=== PATIENT | male | born 1940 | race Caucasian/White ===

== ENCOUNTER 2017-01-22 05:28 | Inpatient (IN) | payer MEDICARE, MEDICAID ==
[~2017-01-22] VITALS: Ht 175.3 cm; Wt 80.3 kg
[2017-01-22 08:35] LABS: INR 1.1; PARTIAL THROMBOPLASTIN TIME 30.3 sec (23.4-31.0); PROTHROMBIN TIME 11.7 sec (9.4-11.6)
[2017-01-22 08:39] LABS: HEMOGLOBIN. 10.3 g/dL (14.0-18.0); MEAN CORPUSCULAR HEMOGLOBIN 35.7 pg (28.0-32.0); MEAN CORPUSCULAR VOLUME 104.2 fL (80.0-94.0); RED BLOOD CELL COUNT 2.88 mill/uL (4.7-6.1); RED CELL DISTRIBUTION WIDTH 15.5 % (11.6-14.6)
[2017-01-22 08:41] LABS: CARBON DIOXIDE 29 mEq/L (21-32); CHLORIDE 104 mEq/L (98-107); TROPONIN I 0.03 ng/mL (0.00-0.04)
[2017-01-22 09:25] LABS: PLATELET ESTIMATE DECREASED
[2017-01-22 09:26] LABS: MEAN PLATELET VOLUME 11.7 fl (7.4-10.4)
[2017-01-22 09:27] LABS: PLATELET 49 x1000/uL (130-400)
[2017-01-22] MEDS ORDERED: CEFTRIAXONE 1 G PREMIX 50 ML IV ONE (09:30)
[2017-01-22] MEDS ORDERED: SODIUM CHLORIDE 0.9% 1000ML BAG (SEPSIS BOLUS) IV ONE (11:30)
[2017-01-22 12:06] LABS: CLARITY URINE CLOUDY (CLEAR); COLOR URINE YELLOW (YELLOW); GLUCOSE URINE NEGATIVE (NEGATIVE); KETONES URINE NEGATIVE (NEGATIVE); LEUKOCYTE ESTERASE URINE TRACE (NEGATIVE); NITRITE URINE NEGATIVE (NEGATIVE); OCCULT BLOOD URINE 3+ (NEGATIVE); PROTEIN URINE 2+ (NEGATIVE)
[2017-01-22 15:50] VITALS: BP 123/84
[2017-01-22 16:00] VITALS: BP 120/49
[2017-01-22] MEDS ORDERED: DOCUSATE SODIUM 100MG CAPSULE PO PRN (18:00)
[2017-01-22] MEDS ORDERED: HYDROCODONE/ACETAMINOPHEN 5/325MG TABLET PO PRN (18:00)
[2017-01-22] MEDS ORDERED: ACETAMINOPHEN 325MG TABLET PO PRN (18:00)
[2017-01-22] MEDS ORDERED: LORAZEPAM 2MG/ML CPJ IV PRN (18:00)
[2017-01-22] MEDS ORDERED: IPRATROPIUM/ALBUTEROL 0.5-3(2.5)MG/3ML NEB INH PRN (18:00)
[2017-01-22] MEDS ORDERED: CLONIDINE 0.1MG TABLET PO PRN (18:00)
[2017-01-22] MEDS ORDERED: ONDANSETRON HCL 4MG/2ML VIAL IV PRN (18:00)
[2017-01-22] MEDS ORDERED: DIPHENHYDRAMINE 50MG/ML VIAL IV PRN (18:00)
[2017-01-22] MEDS ORDERED: GUAIFENESIN 200MG/10ML SUGAR FREE UDC PO PRN (18:00)
[2017-01-22] MEDS: LORAZEPAM 0.5MG TABLET PO SCH (18:45)
[2017-01-22 20:00] VITALS: BP 119/53
[2017-01-22] MEDS: LEVOFLOXACIN 500MG PREMIX 100 ML IV SCH (20:03)
[2017-01-22] MEDS: QUETIAPINE FUMARATE 25MG TABLET PO SCH (20:19)
[2017-01-22] MEDS: SODIUM CHLORIDE 0.9% 1,000 ML IV SCH (20:20)
[2017-01-23] VITALS: BP 110/50
[2017-01-23] MEDS: LORAZEPAM 0.5MG TABLET PO SCH ×3 (03:31→17:58)
[2017-01-23 04:00] VITALS: BP 92/46
[2017-01-23 05:50] LABS: HEMATOCRIT. 23.3 % (42.0-52.0); HEMOGLOBIN. 7.9 g/dL (14.0-18.0); MEAN CORPUSCULAR HEMOGLOBIN 35.5 pg (28.0-32.0); MEAN CORPUSCULAR VOLUME 104.7 fL (80.0-94.0); MEAN PLATELET VOLUME 11.6 fl (7.4-10.4); RED BLOOD CELL COUNT 2.22 mill/uL (4.7-6.1); RED CELL DISTRIBUTION WIDTH 15.5 % (11.6-14.6)
[2017-01-23 06:22] LABS: CHLORIDE 108 mEq/L (98-107)
[2017-01-23 06:28] LABS: PLATELET 35 x1000/uL (130-400)
[2017-01-23] MEDS: LEVOTHYROXINE SODIUM 50MCG TABLET PO SCH (06:34)
[2017-01-23 06:38] LABS: CARBON DIOXIDE 23 mEq/L (21-32); T4 FREE 1.04 ng/dL (0.76-1.46)
[2017-01-23 08:00] VITALS: BP 94/41
[2017-01-23 08:15] LABS: PLATELET ESTIMATE MARKEDLY DECREASED
[2017-01-23] MEDS: FOLIC ACID 1MG TABLET PO SCH (08:39)
[2017-01-23] MEDS: MULTIVITAMINS,THER W-MINERALS TABLET PO SCH (08:40)
[2017-01-23] MEDS: QUETIAPINE FUMARATE 25MG TABLET PO SCH ×2 (08:40→20:13)
[2017-01-23] MEDS: DONEPEZIL HCL 5MG TABLET PO SCH (08:40)
[2017-01-23] MEDS: ASPIRIN 81MG EC TABLET PO SCH (08:40)
[2017-01-23] MEDS: FERROUS SULFATE 325MG TABLET PO SCH ×3 (08:41→17:58)
[2017-01-23] MEDS: DOCUSATE SODIUM 250MG CAPSULE PO SCH (08:50)
[2017-01-23] MEDS ORDERED: KCL 20MEQ/100ML PREMIX 100 ML IV SCH (11:30)
[2017-01-23] MEDS: SODIUM CHLORIDE 0.9% 1,000 ML IV SCH (11:50)
[2017-01-23 12:00] VITALS: BP 95/41
[2017-01-23 16:00] VITALS: BP 115/48
[2017-01-23 20:00] VITALS: BP 105/43
[2017-01-23] MEDS: LEVOFLOXACIN 500MG PREMIX 100 ML IV SCH (20:13)
[2017-01-23] MEDS: FLUDROCORTISONE ACETATE 0.1MG TABLET PO SCH (20:13)
[2017-01-24] VITALS: BP 103/48
[2017-01-24] MEDS: LORAZEPAM 0.5MG TABLET PO SCH ×3 (01:49→18:00)
[2017-01-24 04:00] VITALS: BP 101/54
[2017-01-24] MEDS: SODIUM CHLORIDE 0.9% 1,000 ML IV SCH (06:25)
[2017-01-24] MEDS: LEVOTHYROXINE SODIUM 50MCG TABLET PO SCH (06:25)
[2017-01-24 08:00] VITALS: BP 110/57
[2017-01-24] MEDS: MULTIVITAMINS,THER W-MINERALS TABLET PO SCH (08:27)
[2017-01-24] MEDS: FOLIC ACID 1MG TABLET PO SCH (08:27)
[2017-01-24] MEDS: QUETIAPINE FUMARATE 25MG TABLET PO SCH ×2 (08:27→21:58)
[2017-01-24] MEDS: ASPIRIN 81MG EC TABLET PO SCH (08:27)
[2017-01-24] MEDS: FERROUS SULFATE 325MG TABLET PO SCH ×3 (08:27→18:00)
[2017-01-24] MEDS: FLUDROCORTISONE ACETATE 0.1MG TABLET PO SCH (08:27)
[2017-01-24] MEDS: DONEPEZIL HCL 5MG TABLET PO SCH (08:29)
[2017-01-24] MEDS: DOCUSATE SODIUM 250MG CAPSULE PO SCH (08:34)
[2017-01-24 09:32] LABS: HEMATOCRIT. 25.9 % (42.0-52.0); HEMOGLOBIN. 8.6 g/dL (14.0-18.0); MEAN CORPUSCULAR HEMOGLOBIN 34.4 pg (28.0-32.0); MEAN CORPUSCULAR VOLUME 103.9 fL (80.0-94.0); MEAN PLATELET VOLUME 11.6 fl (7.4-10.4); RED BLOOD CELL COUNT 2.49 mill/uL (4.7-6.1); RED CELL DISTRIBUTION WIDTH 15.1 % (11.6-14.6)
[2017-01-24 09:38] LABS: PLATELET 44 x1000/uL (130-400)
[2017-01-24 09:56] LABS: CARBON DIOXIDE 25 mEq/L (21-32); CHLORIDE 108 mEq/L (98-107)
[2017-01-24 12:00] VITALS: BP 123/95
[2017-01-24 14:22] LABS: PLATELET ESTIMATE MARKEDLY DECREASED
[2017-01-24 16:00] VITALS: BP 120/60
[2017-01-24] MEDS ORDERED: POTASSIUM CHLORIDE 20MEQ TABLET SR PO NR (17:15)
[2017-01-24 20:00] VITALS: BP 124/60
[2017-01-24] MEDS: LEVOFLOXACIN 500MG PREMIX 100 ML IV SCH (22:00)
[2017-01-24] MEDS ORDERED: POTASSIUM CHLORIDE 20MEQ TABLET SR PO SCH (22:00)
[2017-01-25] VITALS: BP 130/56
[2017-01-25] MEDS: LORAZEPAM 0.5MG TABLET PO SCH ×3 (02:45→18:48)
[2017-01-25 04:00] VITALS: BP 146/62
[2017-01-25 07:52] LABS: CARBON DIOXIDE 25 mEq/L (21-32); CHLORIDE 106 mEq/L (98-107)
[2017-01-25 08:00] VITALS: BP 128/63
[2017-01-25] MEDS: ASPIRIN 81MG EC TABLET PO SCH (09:00)
[2017-01-25] MEDS: DOCUSATE SODIUM 250MG CAPSULE PO SCH (11:00)
[2017-01-25] MEDS: FERROUS SULFATE 325MG TABLET PO SCH ×3 (11:00→17:18)
[2017-01-25] MEDS: QUETIAPINE FUMARATE 25MG TABLET PO SCH ×2 (11:00→20:58)
[2017-01-25] MEDS: MULTIVITAMINS,THER W-MINERALS TABLET PO SCH (11:00)
[2017-01-25] MEDS: DONEPEZIL HCL 5MG TABLET PO SCH (11:01)
[2017-01-25] MEDS: FLUDROCORTISONE ACETATE 0.1MG TABLET PO SCH (11:01)
[2017-01-25] MEDS: POTASSIUM CHLORIDE 20MEQ TABLET SR PO SCH ×2 (11:01→17:17)
[2017-01-25] MEDS: LEVOTHYROXINE SODIUM 50MCG TABLET PO SCH (11:01)
[2017-01-25] MEDS: FOLIC ACID 1MG TABLET PO SCH (11:09)
[2017-01-25 12:00] VITALS: BP 129/54
[2017-01-25] MEDS: SODIUM CHLORIDE 0.9% 1,000 ML IV SCH (15:41)
[2017-01-25 16:00] VITALS: BP 113/56
[2017-01-25 20:23] VITALS: BP 128/59
[2017-01-25] MEDS: LEVOFLOXACIN 500MG PREMIX 100 ML IV SCH (20:58)
[2017-01-26] VITALS: BP 110/64
[2017-01-26] MEDS: LORAZEPAM 0.5MG TABLET PO SCH ×3 (02:10→18:54)
[2017-01-26 04:00] VITALS: BP 119/51
[2017-01-26] MEDS: LEVOTHYROXINE SODIUM 50MCG TABLET PO SCH (06:56)
[2017-01-26 07:31] LABS: HEMATOCRIT. 24.9 % (42.0-52.0); HEMOGLOBIN. 8.6 g/dL (14.0-18.0); MEAN CORPUSCULAR HEMOGLOBIN 35.4 pg (28.0-32.0); PLATELET 66 x1000/uL (130-400); RED BLOOD CELL COUNT 2.44 mill/uL (4.7-6.1); RED CELL DISTRIBUTION WIDTH 15.1 % (11.6-14.6)
[2017-01-26 08:00] VITALS: BP 118/68
[2017-01-26 08:45] LABS: CARBON DIOXIDE 25 mEq/L (21-32); CHLORIDE 105 mEq/L (98-107)
[2017-01-26] MEDS: ASPIRIN 81MG EC TABLET PO SCH (09:00)
[2017-01-26] MEDS: DONEPEZIL HCL 5MG TABLET PO SCH (10:22)
[2017-01-26] MEDS: FOLIC ACID 1MG TABLET PO SCH (10:22)
[2017-01-26] MEDS: QUETIAPINE FUMARATE 25MG TABLET PO SCH ×2 (10:22→20:32)
[2017-01-26] MEDS: MULTIVITAMINS,THER W-MINERALS TABLET PO SCH (10:23)
[2017-01-26] MEDS: FERROUS SULFATE 325MG TABLET PO SCH ×3 (10:23→17:51)
[2017-01-26] MEDS: SODIUM CHLORIDE 0.9% 1,000 ML IV SCH (10:23)
[2017-01-26] MEDS: FLUDROCORTISONE ACETATE 0.1MG TABLET PO SCH (10:23)
[2017-01-26] MEDS: DOCUSATE SODIUM 250MG CAPSULE PO SCH (10:30)
[2017-01-26 12:00] VITALS: BP 110/55
[2017-01-26] MEDS ORDERED: POTASSIUM CHLORIDE 20MEQ TABLET SR PO NR (15:30)
[2017-01-26 16:00] VITALS: BP 108/57
[2017-01-26 17:07] LABS: PLATELET ESTIMATE DECREASED
[2017-01-26 20:00] VITALS: BP 120/48
[2017-01-26] MEDS: LEVOFLOXACIN 500MG PREMIX 100 ML IV SCH (20:32)
[2017-01-27] VITALS: BP 116/56
[2017-01-27] MEDS: LORAZEPAM 0.5MG TABLET PO SCH ×3 (02:51→18:06)
[2017-01-27] MEDS: LEVOTHYROXINE SODIUM 50MCG TABLET PO SCH (06:49)
[2017-01-27 08:00] VITALS: BP 125/58
[2017-01-27] MEDS: SODIUM CHLORIDE 0.9% 1,000 ML IV SCH ×2 (08:35→14:29)
[2017-01-27] MEDS: FOLIC ACID 1MG TABLET PO SCH (08:37)
[2017-01-27] MEDS: DONEPEZIL HCL 5MG TABLET PO SCH (08:37)
[2017-01-27] MEDS: MULTIVITAMINS,THER W-MINERALS TABLET PO SCH (08:37)
[2017-01-27] MEDS: ASPIRIN 81MG EC TABLET PO SCH (08:37)
[2017-01-27] MEDS: QUETIAPINE FUMARATE 25MG TABLET PO SCH (08:37)
[2017-01-27] MEDS: FLUDROCORTISONE ACETATE 0.1MG TABLET PO SCH (08:37)
[2017-01-27] MEDS: FERROUS SULFATE 325MG TABLET PO SCH ×3 (08:37→18:06)
[2017-01-27] MEDS: DOCUSATE SODIUM 250MG CAPSULE PO SCH (08:41)
[2017-01-27 12:00] VITALS: BP 103/53
[2017-01-27 12:45] LABS: HEMATOCRIT. 26.1 % (42.0-52.0); HEMOGLOBIN. 8.7 g/dL (14.0-18.0); MEAN CORPUSCULAR HEMOGLOBIN 34.2 pg (28.0-32.0); MEAN CORPUSCULAR VOLUME 102.3 fL (80.0-94.0); MEAN PLATELET VOLUME 10.6 fl (7.4-10.4); PLATELET 87 x1000/uL (130-400); RED BLOOD CELL COUNT 2.55 mill/uL (4.7-6.1); RED CELL DISTRIBUTION WIDTH 15.2 % (11.6-14.6)
[2017-01-27 16:00] VITALS: BP 111/52
[2017-01-27 16:52] VITALS: BP 111/52
[2017-01-27] MEDS ORDERED: LEVOFLOXACIN 750MG PREMIX 150 ML IV SCH (18:00)
[2017-01-27 20:49] LABS: PLATELET ESTIMATE MARKEDLY DECREASED
[2017-01-28] MEDS ORDERED: LEVOFLOXACIN 500MG TABLET PO SCH (11:00)
== END 2017-01-27 20:00 | DRG 871 ==
LOC: ER 05:28 → 6EST 12:09 → EDBEDREQ 12:10 → EDBEDREQTM 12:10 → EDBEDREQSVC 12:10 → ENRESERV 14:06
PROVIDERS: ADMIT Hospitalist; ATTEND Hospitalist
DX: A41.9 Sepsis, unspecified organism (principal); J96.00 Acute respiratory failure, unspecified whether with hypoxia or hypercapnia; G93.40 Encephalopathy, unspecified; J18.9 Pneumonia, unspecified organism; D69.6 Thrombocytopenia, unspecified; F03.90 Unspecified dementia, unspecified severity, without behavioral disturbance, psychotic disturbance, mood disturbance, and anxiety; D64.9 Anemia, unspecified; J44.0 Chronic obstructive pulmonary disease with (acute) lower respiratory infection; Z66 Do not resuscitate; W18.39XA Other fall on same level, initial encounter; E03.9 Hypothyroidism, unspecified; Y93.89 Activity, other specified; Y92.89 Other specified places as the place of occurrence of the external cause; Y99.8 Other external cause status
CPT/HCPCS: 36415; 70450; 71010; 73560; 80053; 81001; 82270; 83605; 83735; 84145; 84439; 84443; 84484; 85025; 85610; 85730; 87040; 87086; 93005; 93970; 96361; 96365; 99285; J0696; J1956; J3480; J7030; J7040

== ENCOUNTER 2017-04-10 12:27 | Emergency (ER) | payer MEDICARE, MEDICAID ==
[~2017-04-10] VITALS: Ht 185.4 cm; Wt 73.0 kg
[2017-04-10 13:29] VITALS: BP 115/58
== END 2017-04-10 13:30 | disposition home or self-care (01) ==
LOC: ER 12:50
DX: C69.61 Malignant neoplasm of right orbit (principal); F03.90 Unspecified dementia, unspecified severity, without behavioral disturbance, psychotic disturbance, mood disturbance, and anxiety; J44.9 Chronic obstructive pulmonary disease, unspecified; E03.9 Hypothyroidism, unspecified; F20.9 Schizophrenia, unspecified
CPT/HCPCS: 99283

== ENCOUNTER 2017-09-21 16:03 | Inpatient (IN) | payer MEDICARE, MEDICAID ==
[~2017-09-21] VITALS: Ht 172.7 cm; Wt 57.2 kg
[2017-09-21 19:47] LABS: HEMATOCRIT. 31.2 % (42.0-52.0); HEMOGLOBIN. 10.5 g/dL (14.0-18.0); MEAN CORPUSCULAR HEMOGLOBIN 34.6 pg (28.0-32.0); MEAN CORPUSCULAR VOLUME 102.4 fL (80.0-94.0); MEAN PLATELET VOLUME 11.6 fl (7.4-10.4); PLATELET 62 x1000/uL (130-400); RED BLOOD CELL COUNT 3.05 mill/uL (4.7-6.1); RED CELL DISTRIBUTION WIDTH 14.4 % (11.6-14.6)
[2017-09-21 19:49] LABS: CHLORIDE 107 mEq/L (98-107)
[2017-09-21 19:53] LABS: PROTHROMBIN TIME 10.8 sec (9.4-11.6)
[2017-09-21 20:07] LABS: PLATELET ESTIMATE DECREASED
[2017-09-21 20:12] LABS: CLARITY URINE CLEAR (CLEAR); COLOR URINE YELLOW (YELLOW); KETONES URINE TRACE (NEGATIVE); LEUKOCYTE ESTERASE URINE 1+ (NEGATIVE); NITRITE URINE NEGATIVE (NEGATIVE); OCCULT BLOOD URINE NEGATIVE (NEGATIVE); PROTEIN URINE TRACE (NEGATIVE); SPECIFIC GRAVITY URINE 1.023 (1.005-1.030); UROBILINOGEN URINE 0.2 E.U./dL (0.2-1.0)
[2017-09-21 20:25] LABS: *AMPHETAMINES SCREEN URINE NEGATIVE (NEGATIVE); *BARBITURATES SCREEN URINE NEGATIVE (NEGATIVE); *BENZODIAZEPINES SCREEN URINE NEGATIVE (NEGATIVE); *COCAINE SCREEN URINE NEGATIVE (NEGATIVE)
[2017-09-21 20:26] LABS: CANNABINOID URINE SCREEN NEGATIVE (NEGATIVE); METHADONE URINE SCREEN NEGATIVE (NEGATIVE); OPIATES URINE SCREEN NEGATIVE (NEGATIVE); PHENCYCLIDINE URINE SCREEN NEGATIVE (NEGATIVE)
[2017-09-21] MEDS ORDERED: CEFTRIAXONE 1 G PREMIX 50 ML IV ONE (21:15)
[2017-09-21] MEDS ORDERED: SODIUM CHLORIDE 0.9% 1,000 ML IV ONE (21:15)
[2017-09-21] MEDS ORDERED: NA PHOS,M-B/NA PHOS,DI-BA ENEMA 118ML PR PRN (21:30)
[2017-09-21] MEDS ORDERED: ACETAMINOPHEN 650MG/20.3ML UDC GT PRN (21:30)
[2017-09-21] MEDS ORDERED: HYDROCODONE/ACETAMINOPHEN 5/325MG TABLET PO PRN (21:30)
[2017-09-21] MEDS ORDERED: ACETAMINOPHEN 650MG SUPP PR PRN (21:30)
[2017-09-21] MEDS ORDERED: DOCUSATE SODIUM 100MG CAPSULE PO PRN (21:30)
[2017-09-21] MEDS ORDERED: IPRATROPIUM/ALBUTEROL 0.5-3(2.5)MG/3ML NEB INH PRN (21:30)
[2017-09-21] MEDS ORDERED: CLONIDINE 0.1MG TABLET PO PRN (21:30)
[2017-09-21] MEDS ORDERED: HYDROCODONE/ACETAMINOPHEN 10/325MG TABLET PO PRN (21:30)
[2017-09-21] MEDS ORDERED: GUAIFENESIN 200MG/10ML SUGAR FREE UDC PO PRN (21:30)
[2017-09-21] MEDS ORDERED: DIPHENHYDRAMINE 50MG/ML VIAL IV PRN (21:30)
[2017-09-21] MEDS ORDERED: ENOXAPARIN 40MG/0.4ML SYR SUBCUT SCH (21:30)
[2017-09-21] MEDS ORDERED: ONDANSETRON HCL 4MG/2ML VIAL IV PRN (21:30)
[2017-09-21] MEDS ORDERED: MAGNESIUM/ALUMINUM HYDROXIDE/SIMETHICONE 30ML UDC PO PRN (21:30)
[2017-09-21] MEDS ORDERED: CEFTRIAXONE 1 G PREMIX 50 ML IV SCH (21:30)
[2017-09-21] MEDS ORDERED: ACETAMINOPHEN 325MG TABLET PO PRN (21:30)
[2017-09-21 22:56] LABS: CREATINE KINASE 39 IU/L (39-308)
[2017-09-22 02:10] VITALS: BP 103/45
[2017-09-22] MEDS ORDERED: LOPE-159 PO (03:49)
[2017-09-22] MEDS ORDERED: DONE5TAB33 MT (03:49)
[2017-09-22] MEDS ORDERED: DOXE10CA2 MT (03:49)
[2017-09-22] MEDS ORDERED: ACET650S22 PO (03:49)
[2017-09-22] MEDS ORDERED: CLON-457 PO (03:49)
[2017-09-22] MEDS ORDERED: SIME125C PO (03:49)
[2017-09-22] MEDS ORDERED: LEVO50TA8 MT (03:49)
[2017-09-22] MEDS ORDERED: FLUD0.1T PO (03:49)
[2017-09-22] MEDS ORDERED: ACET325S17 PO (03:49)
[2017-09-22] MEDS ORDERED: MAGN800O PO (03:49)
[2017-09-22] MEDS ORDERED: ONDA4TAB5 PO (03:49)
[2017-09-22] MEDS ORDERED: QUET25TA34 PO (03:49)
[2017-09-22 04:10] VITALS: BP 103/45
[2017-09-22] MEDS: SODIUM CHLORIDE 0.45% 1,000 ML IV SCH ×2 (05:12→22:03)
[2017-09-22] MEDS: SODIUM CHLORIDE 0.9% INJ 3ML FLUSH IVF SCH ×3 (05:14→22:05)
[2017-09-22 06:50] LABS: HEMATOCRIT. 28.6 % (42.0-52.0); HEMOGLOBIN. 9.6 g/dL (14.0-18.0); MEAN CORPUSCULAR HEMOGLOBIN 34.4 pg (28.0-32.0); MEAN CORPUSCULAR VOLUME 102.4 fL (80.0-94.0); MEAN PLATELET VOLUME 12.8 fl (7.4-10.4)
[2017-09-22 07:11] LABS: CHLORIDE 107 mEq/L (98-107)
[2017-09-22 07:16] LABS: LDL CHOLESTEROL 102 mg/dL (5-100)
[2017-09-22 07:17] LABS: HDL CHOLESTEROL 33 mg/dL (40-59)
[2017-09-22 07:18] LABS: CREATINE KINASE 51 IU/L (39-308)
[2017-09-22 07:20] LABS: CREATINE KINASE MB FRACTION 1.3 ng/mL (0.5-3.6)
[2017-09-22 08:00] VITALS: BP 100/41
[2017-09-22 08:06] LABS: PLATELET ESTIMATE MARKEDLY DECREASED
[2017-09-22 08:07] LABS: PLATELET 49 x1000/uL (130-400)
[2017-09-22 12:00] VITALS: BP 90/50
[2017-09-22 16:00] VITALS: BP 90/50
[2017-09-22 20:00] VITALS: BP 105/56
[2017-09-22] MEDS: CEFTRIAXONE 1 G PREMIX 50 ML IV SCH (22:05)
[2017-09-22] MEDS: NEOMY SULF/BACITRAC ZN/POLY OINT 28GM TOP SCH (22:05)
[2017-09-23 04:00] VITALS: BP 103/49
[2017-09-23] MEDS: SODIUM CHLORIDE 0.9% INJ 3ML FLUSH IVF SCH ×3 (05:28→23:00)
[2017-09-23 08:00] VITALS: BP 100/48
[2017-09-23] MEDS: NEOMY SULF/BACITRAC ZN/POLY OINT 28GM TOP SCH ×2 (09:03→21:32)
[2017-09-23 12:00] VITALS: BP 96/43
[2017-09-23] MEDS ORDERED: LOPERAMIDE HCL 2MG CAPSULE PO PRN (15:15)
[2017-09-23 16:00] VITALS: BP 94/55
[2017-09-23] MEDS: DONEPEZIL HCL 5MG TABLET PO SCH (17:34)
[2017-09-23] MEDS: QUETIAPINE FUMARATE 25MG TABLET PO SCH ×2 (17:34→21:33)
[2017-09-23] MEDS: LEVOTHYROXINE SODIUM 50MCG TABLET PO SCH (17:34)
[2017-09-23] MEDS: FLUDROCORTISONE ACETATE 0.1MG TABLET PO SCH (17:34)
[2017-09-23] MEDS: SODIUM CHLORIDE 0.45% 1,000 ML IV SCH (17:35)
[2017-09-23 20:00] VITALS: BP 109/53
[2017-09-23] MEDS: CEFTRIAXONE 1 G PREMIX 50 ML IV SCH (23:57)
[2017-09-24] VITALS: BP 100/46
[2017-09-24 04:00] VITALS: BP 106/52
[2017-09-24] MEDS: SODIUM CHLORIDE 0.9% INJ 3ML FLUSH IVF SCH ×2 (05:29→13:58)
[2017-09-24] MEDS: SODIUM CHLORIDE 0.45% 1,000 ML IV SCH (05:51)
[2017-09-24] MEDS: LEVOTHYROXINE SODIUM 50MCG TABLET PO SCH (05:51)
[2017-09-24 08:00] VITALS: BP 89/34
[2017-09-24] MEDS: FLUDROCORTISONE ACETATE 0.1MG TABLET PO SCH (08:11)
[2017-09-24] MEDS: QUETIAPINE FUMARATE 25MG TABLET PO SCH (08:11)
[2017-09-24] MEDS: DONEPEZIL HCL 5MG TABLET PO SCH (08:11)
[2017-09-24] MEDS: NEOMY SULF/BACITRAC ZN/POLY OINT 28GM TOP SCH (08:13)
[2017-09-24 11:58] LABS: HEMATOCRIT. 28.5 % (42.0-52.0); HEMOGLOBIN. 9.8 g/dL (14.0-18.0); MEAN CORPUSCULAR HEMOGLOBIN 34.9 pg (28.0-32.0); MEAN CORPUSCULAR VOLUME 101.7 fL (80.0-94.0); MEAN PLATELET VOLUME 12.5 fl (7.4-10.4); RED CELL DISTRIBUTION WIDTH 14.5 % (11.6-14.6)
[2017-09-24 12:06] LABS: PLATELET 50 x1000/uL (130-400)
[2017-09-24 12:49] LABS: PLATELET ESTIMATE DECREASED
[2017-09-24 12:55] LABS: CHLORIDE 107 mEq/L (98-107)
[2017-09-24 15:00] VITALS: BP 100/50
== END 2017-09-24 15:00 | DRG 689 ==
LOC: ER 16:03 → 5WST 21:26 → ENRESERV 22:27
PROVIDERS: ADMIT Family Medicine; ATTEND Family Medicine
DX: N39.0 Urinary tract infection, site not specified (principal); G93.41 Metabolic encephalopathy; D69.6 Thrombocytopenia, unspecified; D63.8 Anemia in other chronic diseases classified elsewhere; E03.9 Hypothyroidism, unspecified; E86.0 Dehydration; F03.90 Unspecified dementia, unspecified severity, without behavioral disturbance, psychotic disturbance, mood disturbance, and anxiety; F17.210 Nicotine dependence, cigarettes, uncomplicated; F20.9 Schizophrenia, unspecified; I10 Essential (primary) hypertension; J44.9 Chronic obstructive pulmonary disease, unspecified; S01.01XA Laceration without foreign body of scalp, initial encounter; X58.XXXA Exposure to other specified factors, initial encounter; S80.812A Abrasion, left lower leg, initial encounter; Y93.89 Activity, other specified; Y92.89 Other specified places as the place of occurrence of the external cause; Y99.8 Other external cause status; Z85.89 Personal history of malignant neoplasm of other organs and systems
CPT/HCPCS: 36415; 70450; 71045; 80053; 80061; 80305; 81003; 82550; 82553; 82962; 83036; 83605; 83690; 83880; 84134; 84484; 85025; 85610; 87040; 87086; 93005; 96365; 97162; 99285; J0696; J7030

== ENCOUNTER 2018-05-02 12:20 | Inpatient (IN) | payer MEDICARE, MEDICAID ==
[~2018-05-02] VITALS: Ht 175.3 cm; Wt 56.2 kg
[2018-05-02 12:20] VITALS: BP 108/58
[~2018-05-02 12:20] MED LIST: ACET325S17 PO; ACET650S22 PO; CLON-457 PO; DONE5TAB33 MT; DOXE10CA2 MT; FLUD0.1T PO; LEVO50TA8 MT; LOPE-159 PO; MAGN800O PO; ONDA4TAB5 PO; QUET25TA34 PO; SIME125C PO
[2018-05-02] MEDS ORDERED: IPRATROPIUM/ALBUTEROL 0.5-3(2.5)MG/3ML NEB HHN PRN (14:00)
[2018-05-02] MEDS ORDERED: ACETAMINOPHEN 500MG TABLET PO PRN (14:00)
[2018-05-02] MEDS ORDERED: HYDROCODONE/ACETAMINOPHEN 5/325MG TABLET PO PRN (14:00)
[2018-05-02] MEDS ORDERED: MAGNESIUM HYDROXIDE 400MG/5ML 30ML UDC PO PRN (14:00)
[2018-05-02] MEDS ORDERED: ACETAMINOPHEN 325MG TABLET PO PRN (14:00)
[2018-05-02 18:15] LABS: CLARITY URINE CLOUDY (CLEAR); COLOR URINE YELLOW (YELLOW); KETONES URINE NEGATIVE (NEGATIVE); LEUKOCYTE ESTERASE URINE TRACE (NEGATIVE); NITRITE URINE NEGATIVE (NEGATIVE); OCCULT BLOOD URINE NEGATIVE (NEGATIVE); PH URINE 5.5 (4.5-8.0); PROTEIN URINE TRACE (NEGATIVE); SPECIFIC GRAVITY URINE 1.021 (1.005-1.030); UROBILINOGEN URINE 0.2 E.U./dL (0.2-1.0)
[2018-05-02 20:00] VITALS: BP 109/57
[2018-05-02] MEDS: DONEPEZIL HCL 5MG TABLET PO SCH (21:00)
[2018-05-02] MEDS: MIRTAZAPINE 15MG TABLET PO SCH (21:00)
[2018-05-02 21:35] LABS: HEMATOCRIT. 29.1 % (42.0-52.0); HEMOGLOBIN. 9.4 g/dL (14.0-18.0); MEAN CORPUSCULAR VOLUME 102.3 fL (80.0-94.0); MEAN PLATELET VOLUME 11.1 fl (7.4-10.4); PLATELET 95 x1000/uL (130-400); RED BLOOD CELL COUNT 2.85 mill/uL (4.7-6.1); RED CELL DISTRIBUTION WIDTH 16.8 % (11.6-14.6)
[2018-05-02 22:13] LABS: PLATELET ESTIMATE DECREASED
[2018-05-03] VITALS: BP 107/55
[2018-05-03 04:00] VITALS: BP 100/57
[2018-05-03] MEDS: LEVOTHYROXINE SODIUM 50MCG TABLET PO SCH (06:33)
[2018-05-03 08:00] VITALS: BP 101/43
[2018-05-03] MEDS: MULTIVITAMINS,THER W-MINERALS TABLET PO SCH (09:00)
[2018-05-03] MEDS: FLUDROCORTISONE ACETATE 0.1MG TABLET PO SCH (09:00)
[2018-05-03] MEDS: QUETIAPINE FUMARATE 25MG TABLET PO SCH (09:00)
[2018-05-03] MEDS: DOCUSATE SODIUM 100MG CAPSULE PO SCH ×2 (09:00→17:00)
[2018-05-03 12:00] VITALS: BP 100/46
[2018-05-03 16:00] VITALS: BP 88/56
[2018-05-03 20:00] VITALS: BP 104/74
[2018-05-03] MEDS: MIRTAZAPINE 15MG TABLET PO SCH (20:36)
[2018-05-03] MEDS: DONEPEZIL HCL 5MG TABLET PO SCH (20:36)
[2018-05-03] MEDS ORDERED: SODIUM CHLORIDE 0.9% 1,000 ML IV SCH (22:45)
[2018-05-03 23:41] LABS: HEMATOCRIT. 26.9 % (42.0-52.0); MEAN CORPUSCULAR HEMOGLOBIN 33.9 pg (28.0-32.0); MEAN CORPUSCULAR VOLUME 100.8 fL (80.0-94.0); MEAN PLATELET VOLUME 10.9 fl (7.4-10.4); PLATELET 100 x1000/uL (130-400); RED BLOOD CELL COUNT 2.67 mill/uL (4.7-6.1); RED CELL DISTRIBUTION WIDTH 16.5 % (11.6-14.6)
[2018-05-03 23:47] LABS: CHLORIDE 103 mEq/L (98-107)
[2018-05-04] VITALS: BP 113/51
[2018-05-04 04:00] VITALS: BP 103/53
[2018-05-04] MEDS: LEVOTHYROXINE SODIUM 50MCG TABLET PO SCH (07:01)
[2018-05-04 08:00] VITALS: BP 111/43
[2018-05-04 09:24] LABS: PLATELET ESTIMATE DECREASED
[2018-05-04] MEDS: QUETIAPINE FUMARATE 25MG TABLET PO SCH (09:33)
[2018-05-04] MEDS: MULTIVITAMINS,THER W-MINERALS TABLET PO SCH (09:33)
[2018-05-04] MEDS: FLUDROCORTISONE ACETATE 0.1MG TABLET PO SCH (09:33)
[2018-05-04] MEDS: DOCUSATE SODIUM 100MG CAPSULE PO SCH ×2 (09:33→17:00)
[2018-05-04] MEDS ORDERED: VANCOMYCIN 1 G PREMIX 200 ML IV SCH (10:00)
[2018-05-04] MEDS ORDERED: VANCOMYCIN 1 G PREMIX 200 ML IV NR (17:00)
[2018-05-04 20:00] VITALS: BP 110/49
[2018-05-04] MEDS: DONEPEZIL HCL 5MG TABLET PO SCH (21:00)
[2018-05-04] MEDS: MIRTAZAPINE 15MG TABLET PO SCH (21:00)
[2018-05-05] VITALS: BP 101/50
[2018-05-05 00:28] LABS: HEMATOCRIT. 28.1 % (42.0-52.0); HEMOGLOBIN. 9.4 g/dL (14.0-18.0); MEAN CORPUSCULAR HEMOGLOBIN 33.6 pg (28.0-32.0); MEAN CORPUSCULAR VOLUME 100.8 fL (80.0-94.0); MEAN PLATELET VOLUME 11.4 fl (7.4-10.4); PLATELET 103 x1000/uL (130-400); RED BLOOD CELL COUNT 2.79 mill/uL (4.7-6.1)
[2018-05-05 00:42] LABS: CHLORIDE 104 mEq/L (98-107)
[2018-05-05 01:47] LABS: PROTHROMBIN TIME 10.5 sec (9.1-11.1)
[2018-05-05 02:41] LABS: ATYPICAL LYMPHOCYTES 2; PLATELET ESTIMATE SLIGHTLY DECREASED
[2018-05-05 04:00] VITALS: BP 109/51
[2018-05-05] MEDS ORDERED: CEFT1VIA15 IV (08:29)
[2018-05-05] MEDS: DOCUSATE SODIUM 100MG CAPSULE PO SCH ×2 (09:00→17:00)
[2018-05-05] MEDS: MULTIVITAMINS,THER W-MINERALS TABLET PO SCH (09:37)
[2018-05-05] MEDS: FLUDROCORTISONE ACETATE 0.1MG TABLET PO SCH (09:37)
[2018-05-05] MEDS: QUETIAPINE FUMARATE 25MG TABLET PO SCH (09:37)
[2018-05-05] MEDS: LEVOTHYROXINE SODIUM 50MCG TABLET PO SCH (09:37)
[2018-05-05] MEDS ORDERED: CEFTRIAXONE 1 G PREMIX 50 ML IV SCH (10:00)
[2018-05-05] MEDS ORDERED: CEFTRIAXONE 1,000 MG in DEXTROSE 5% WATER 50 ML IV SCH (10:00)
[2018-05-05] MEDS ORDERED: VANCOMYCIN 750 MG PREMIX 150 ML IV SCH (11:00)
[2018-05-05 12:19] VITALS: BP 93/41
[2018-05-05 16:00] VITALS: BP 89/25
[2018-05-05 18:34] VITALS: BP 82/28
[2018-05-05] MEDS: MIRTAZAPINE 15MG TABLET PO SCH (21:00)
[2018-05-05] MEDS: DONEPEZIL HCL 5MG TABLET PO SCH (21:00)
== END 2018-05-05 21:23 | DRG 603 ==
LOC: 6EST 12:20
PROVIDERS: ADMIT Family Medicine; ATTEND Family Medicine
DX: L03.211 Cellulitis of face (principal); Z68.1 Body mass index [BMI] 19.9 or less, adult; E86.0 Dehydration; J44.9 Chronic obstructive pulmonary disease, unspecified; I10 Essential (primary) hypertension; E03.9 Hypothyroidism, unspecified; R62.7 Adult failure to thrive; C44.329 Squamous cell carcinoma of skin of other parts of face; F32.9 Major depressive disorder, single episode, unspecified; F17.210 Nicotine dependence, cigarettes, uncomplicated
CPT/HCPCS: 36415; 71045; 80048; 97161; J0696; J3370; J7030; J7060